=== PATIENT | male | born 1995 | race Caucasian/White ===

== ENCOUNTER 2018-08-14 15:04 | Emergency (ER) | payer OTHER ==
[~2018-08-14] VITALS: Ht 185.4 cm; Wt 88.6 kg
[2018-08-14 15:48] LABS: BASO # 0.1 (0.0-0.2); BASO % 0.4 % (0.0-2.0); GRAN # 20.9 (1.4-6.5); GRAN % 91.9 % (42.2-75.2); LYMPH # 0.5 (1.2-3.4); MEAN CELL VOLUME 88 fl (80.0-100.0); MEAN CORPUSCULAR HGB CONC 35 g/dl (33.0-37.0); MEAN PLATELET VOLUME 12.5 fl (7.4-10.4); MONO # 1.2 (0.1-0.6); MONO % 5.1 % (1.7-9.3); PLATELET COUNT 256 K/mm3 (130-400); REDCELL DISTRIBUTION WIDTH-CV 11.8 % (11.5-14.5)
[2018-08-14 15:54] LABS: HEMATOCRIT 52.8 % (42.0-52.0); HEMOGLOBIN 18.7 g/dl (13.5-18.0); MEAN CORPUSCULAR HEMOGLOBIN 31 pg (27.0-31.0)
[2018-08-14 16:06] LABS: ALBUMIN 5.3 gm/dL (3.5-5.0); BILIRUBIN,TOTAL 1.6 mg/dL (0.0-1.0); C-REACTIVE PROTEIN 1.1 mg/dL (0.0-0.9); CALCIUM 10.8 mg/dL (8.4-10.2); CREATININE, serum 1.05 mg/dL (0.66-1.25); POTASSIUM 3.9 mmol/L (3.4-5.0); TOTAL PROTEIN 9.3 gm/dL (6.4-8.2)
[2018-08-14 17:05] VITALS: BP 118/69; PULSE 90
== END 2018-08-14 17:09 | disposition home or self-care (01) ==
LOC: COL.ER 15:04
PROVIDERS: Physician Assistant
DX: A08.4 Viral intestinal infection, unspecified (principal)
CPT/HCPCS: J1885; J2405; J7030